=== PATIENT | male | born 1990 | race Caucasian/White ===

== ENCOUNTER 2019-07-24 02:19 | Emergency (ER) | payer BC ==
[~2019-07-24] VITALS: Ht 185.4 cm; Wt 109.8 kg
[2019-07-24 02:29] VITALS: BP 146/83
--- NOTE | 2019-07-24 02:29 | ER.PDOC ---
General Chief Complaint: Requesting Medical Care Stated Complaint: COUGH,LIGHTHEADED,BURNING LUNGS,SOB Time seen by MD: 02:26 Source: patient Exam Limitations: no limitations History of Present Illness Initial Comments 29 y/o male hx seen in clinic last week for cough, congestion and wheezing, placed on 5 days prednisone, and albuterol inhaler. [place] better, then about 2-3 days ago increased fever, body aches, and cough has gotten worse. No CP unless takes deep breath or coughs. No rash, no SHABAZZ, no other complaints. Timing/Duration: gradual, intermittent, other Severity: moderate Associated Symptoms: fever/chills, runny nose, cough, productive cough, mild SOB Worsen By: deep breathing Prior symptoms/Treatment: Similar symptoms previous, Recenly Seen, Treated by Doctor Allergies: Coded Allergies: bee venom protein (honey bee) (Verified Allergy, Severe, SWELLING, 07/24/19) Constitutional: chills, fever EENTM: nose congestion, throat pain Respiratory: cough, shortness of breath Cardiovascular: no symptoms reported Gastrointestinal: no symptoms reported Genitourinary: no symptoms reported Musculoskeletal: no symptoms reported Skin: no symptoms reported Psychiatric/Neurological: no symptoms reported Endocrine: no symptoms reported Hematologic/Lymphatic: no symptoms reported Physical Exam General Appearance: alert, no distress Eye: eyes nml inspection, lids & conjunct. nml, PERRL, no nystagmus Ear: ear nml Nose: nose nml Throat: pharynx nml, airway nml Neck: nml inspection, supple Respiratory: no resp.distress, rhonchi CVS: reg rate & rhythm, heart sounds nml Skin: color nml, no rash, warm/dry Extremities: non-tender, nml ROM, no pedal edema NEURO/PSYCH: oriented x 3, CN's nml as tested, motor nml, sensation nml, mood/affect nml Comments LUNGS--MIN BILAT RONCHI, NO RESP DISTRESS. Results/Orders Results/Orders Orders - SANTI ELIAS DO Influenza A&B (07/24/19 02:33) Xr Chest 2v (07/24/19 02:33) Ibuprofen (Motrin) (07/24/19 02:48) Ibuprofen (Motrin) (07/24/19 02:52) Vital Signs Date Time Temp Pulse Resp B/P (MAP) Pulse Ox O2 Delivery O2 Flow Rate FiO2 07/24/19 02:34 100.1 100 18 146/83 (104) 94 07/24/19 02:29 100.1 100 18 94 07/24/19 02:29 100.1 100 18 Administered Medications Medications (Trade) Dose Ordered Sig/Ally Route PRN Reason Start Time Stop Time Status Last Admin Dose Admin Ibuprofen (Motrin) 600 mg STAT STAT PO 07/24/19 02:52 07/24/19 02:53 DC 07/24/19 02:53 600 MG Laboratory Tests Test 07/24/19 02:36 Influenza Type A Antigen POSITIVE (NEG) Influenza B Immunofluorescence NEGATIVE (NEG) Progress Progress DIFF DX IN DETAIL---INFLUENZA-A DISCUSSED, DRINK PLENTY FLUIDS, BED REST AND FOLLOW UP WITH YOUR DR. EKG/XRAY/CT/US XRAY: chest XRAY Comments: CHEST XRAY----NEG STUDY. Departure Time of Disposition: 03:09 Disposition: 01 HOME, SELF-CARE Impression: Primary Impression: Influenza A Additional Impression: Fever Condition: Stable Patient Instructions: Fever Referrals: PCP,UNKNOWN (PCP) PRIMARY CARE PROVIDER Additional Instructions: TO ED F WORSE OR NO BETTER, DRINK PLENTY FLUIDS, RX TAMIFLU, TESSALON PERLES, ZOFRAN, NO WORK X 2 DAYS. Duration or Time Spent with Pa: 15 MIN Return to Work/School Can a patient return to work?: No Problem Qualifiers SANTI ELIAS DO Jul 24, 2019 02:29
[2019-07-24 02:34] VITALS: BP 146/83
[2019-07-24] MEDS ORDERED: MOTRIN ONE (02:48)
[2019-07-24] MEDS ORDERED: MOTRIN PO STA (02:52)
--- NOTE | 2019-07-24 03:08 | DIREP ---
PROCEDURE:CHEST 2 VIEWS COMPARISON:None. INDICATIONS:cough, congestion x 2-3 days. FINDINGS: LUNGS/PLEURA:No focal consolidation, pleural effusion, or pneumothorax. VASCULATURE:Normal. Unremarkable pulmonary vasculature. CARDIAC:Normal. No cardiac silhouette abnormality or cardiomegaly. MEDIASTINUM:Normal. No visible mass or adenopathy. BONES:Normal. No fracture or visible bony lesion. OTHER:Negative. CONCLUSION: 1. No acute cardiopulmonary process. Dictated by: Pietro Barrientos MD on 07/24/2019 at 03:06 AM
[2019-07-24] MEDS ORDERED: ZOFRAN ODT ONE (03:12)
[2019-07-24] MEDS ORDERED: ZOFRAN ODT SL PRN (03:30)
== END 2019-07-24 03:18 | disposition home or self-care (01) ==
LOC: ER 02:19
DX: J10.1 Influenza due to other identified influenza virus with other respiratory manifestations (principal); Z79.1 Long term (current) use of non-steroidal anti-inflammatories (NSAID); Z91.030 Bee allergy status
CPT/HCPCS: 71046; 87804 ×2; 99284; Q0162